=== PATIENT | female | born 1945 | race American Indian/Alaskan Native ===

== ENCOUNTER 2017-06-04 11:01 | Emergency (ER) | payer MEDICARE ==
[2017-06-04] MEDS ORDERED: HYDROmorphone 2 MG/ML SDV IVPUSH ONE ×2 (11:12→11:42)
[2017-06-04 14:34] VITALS: BP 142/68
--- NOTE | 2017-06-06 11:56 | CR ---
INDICATION: Fall. RIGHT SHOULDER COMPLETE: Three views of the right shoulder revealed an anteroinferior dislocation with a defect at the greater tuberosity compatible with previous dislocations anteroinferiorly also. There is a calcification adjacent to the greater tuberosity area, which may represent dystrophic soft tissue calcification - possible calcific tendinitis. Arterial calcifications are also noted in the proximal arm. A definite shoulder fracture site was not identified. There may be a mild degree of AC joint strain. This should be correlated clinically. IMPRESSION: 1. Anteroinferior dislocation glenohumeral joint. 2. Question the possibility of minimal strain at the AC joint. 3. Fractures at the right rib posterolaterally, one possibly healing, one acute with offset. Report was called to Dr. Cabezas for Dr. Brown at 1106 hours, 06/06/2017. [facility]
--- NOTE | 2017-06-06 11:59 | CR ---
INDICATION: Fall. RIGHT HUMERUS: A single frontal view of the humerus revealed anteroinferior dislocation at the glenohumeral joint. There is some slight sclerosis of the undersurface of the acromion, rasing question of a mild degree of impingement, possibly on the basis of rotator cuff injury or more likely degeneration. A definite shoulder fracture site was not seen. MTDD
--- NOTE | 2017-06-06 12:03 | CR ---
INDICATION: Portable. Shoulder reduction. RIGHT SHOULDER: A single frontal view of the shoulder was obtained post reduction and revealed, on a single frontal view, an appearance of reduction of the anteroinferior dislocation with no definite shoulder fracture site identified. A lateral view was not obtained. COY
--- NOTE | 2017-06-07 14:00 | ER ---
DATE SEEN: 06/04/2017 TIME SEEN: The patient was seen at 1150 hours. HISTORY OF PRESENT ILLNESS: The patient is lives alone in her own home. This is a 71-year-old woman, who fell and has pain in the right shoulder. She did not hit her head or shoulder. Denies any chest pain, shortness of breath, irregular heartbeat, abdominal discomfort, nausea, vomiting, diarrhea, frequency, urgency, dysuria, or urine loss, or other musculoskeletal complaints. MEDICATIONS: The patient currently is takin. Diltiazem. 2. Flexeril. 3. Combivent. 4. Lasix. 5. Enbrel - Etanercept. 6. Vitamin D2. 7. Ergocalciferol. 8. Warfarin 5 mg daily. 9. Potassium chloride. 10.Lisinopril 10 mg daily. 11.Levothyroxine 75 mcg daily. REVIEW OF SYSTEMS: Otherwise, negative except as noted above. PHYSICAL EXAMINATION: VITAL SIGNS: Blood pressure 136/80, heart rate 81, respirations 18, oxygen saturation 100% on room air, and temperature 36.8 degrees. GENERAL: The patient has a sling on her right forearm, was brought in by ambulance to hospital. She is alert, responsive, has mild discomfort. HEENT: PERRLA intact. Pharynx without abnormality. TMs negative. No tenderness in the neck or cervical spine. No anterior neck discomfort or bruits. LUNGS: Clear to auscultation without rales, rhonchi, or wheezes. HEART: S1, S2. No murmur. No irregular rate or rhythm. CHEST: Chest wall nontender. No crepitus to chest wall, right or left. EXTREMITIES: Lower extremities without abnormality. ABDOMEN: The liver appropriately palpable. Abdomen soft. No guarding. No discomfort. SPINOUS PROCESSES: Thoracic and lumbar spine negative. Deep tendon reflexes hypoactive upper and lower extremities. NEUROLOGIC: Cranial nerves 2 through 12 intact. Oriented x3. Gait not tested. EMERGENCY DEPARTMENT COURSE: The patient's right upper extremity has angularity of the right shoulder and is reluctant to move the shoulder. Elbow is nontender. No ecchymosis, swelling, tenderness, or abrasion. Forearm can supinate or pronate, but she is reluctant to flex the forearm. Sensation is intact. Good radial and ulnar pulse intact. Right upper extremity good. On evaluation of the x-rays, it is apparent that she had anterior- inferior subluxation. A nurse assisted me, and with traction and countertraction, the right shoulder easily was reduced. The patient tolerated the procedure. Sensation intact post reduction and also radial and ulnar pulses present in the right upper extremity - no change. The patient's shoulder reduced easily. Shoulder immobilizer was placed. The patient to use Toradol 10 mg 1 tablet q.4 to 6 hours p.r.n. pain. Follow up with doctor in a week. Use ice to the shoulder. /[id number] NASRA/SCOOTER CESPEDES
--- NOTE | 2017-06-19 00:31 | ER ---
DATE SEEN: 06/04/2017 DIAGNOSIS: Right anteroinferior subluxation of humerus/shoulder dislocation. OTHER DIAGNOSES: 1. Arthritis. 2. Hypertension. 3. Hypothyroidism, treated. 4. Chronic pain. /[id number] NASRA/SCOOTER
== END 2017-06-04 13:10 | disposition home or self-care (01) ==
LOC: FB.ED 11:01
DX: S43.014A Anterior dislocation of right humerus, initial encounter (principal); M19.90 Unspecified osteoarthritis, unspecified site; I10 Essential (primary) hypertension; E03.9 Hypothyroidism, unspecified; G89.29 Other chronic pain; Z79.899 Other long term (current) drug therapy; Z79.01 Long term (current) use of anticoagulants; W19.XXXA Unspecified fall, initial encounter
CPT/HCPCS: 23650; 73020; 73030; 73060; 96374; 96375; 99283; 99284; J1170